=== PATIENT | female | born 1950 | race Caucasian/White ===

== ENCOUNTER 2019-03-03 10:29 | Outpatient (CLI) | payer OTHER | END 2019-03-03 17:00 | disposition home or self-care (01) | LOC: TOM 10:29 | DX: K57.30 Diverticulosis of large intestine without perforation or abscess without bleeding (principal); K62.5 Hemorrhage of anus and rectum ==

== ENCOUNTER → 2020-03-29 | Outpatient (CLI) | payer OTHER | END | disposition home or self-care (01) | LOC: TOM 07:15 | PROVIDERS: ATTEND Internal Medicine Gastroenterology | DX: K57.30 Diverticulosis of large intestine without perforation or abscess without bleeding (principal); N20.0 Calculus of kidney; Z86.010 Personal history of colon polyps; K56.600 Partial intestinal obstruction, unspecified as to cause ==